=== PATIENT | female | born 1985 | race African-American/Black ===

== ENCOUNTER 2021-10-02 09:28 | Outpatient (CLI) | payer OTHER, SELFPAY ==
--- NOTE | ~2021-10-02 | US_ITS ---
EXAMINATION: US percutaneous drain w cath DATE: 10/02/2021 11:10 INDICATION: Recurrent right lower abdominal wall hematoma. TECHNIQUE: The procedure including the risks, benefits, and alternatives was discussed with the patie nt. Risks discussed included bleeding and infection. Oral and written consent were obtained. A time out was performed to verify the patient's name, date of , and procedure to be performed. The sk in overlying the right abdominal wall was prepped and draped in usual sterile fashion. Anesthetic wa s administered with 1% lidocaine subcutaneously. An 8.5 Fr catheter was inserted into the abdominal wall fluid collection by trocar technique. The metal stiffener and trocar needle were removed, and th e pigtail tip was locked. The catheter was stitched to the skin with suture. There were no immediate complications. FINDINGS: Ultrasound images demonstrate the catheter within the right abdominal wall fluid collection . 20 mL bloody fluid was aspirated and discarded. IMPRESSION: 1. Successful ultrasound-guided right abdominal wall abscess drainage. Reviewed, dictated and finalized at location A.
== END 2021-10-02 09:29 | disposition home or self-care (01) ==
PROVIDERS: Visit Provider Surgery Plastic and Reconstructive Surgery
DX: R18.8 Other ascites (principal)
CPT/HCPCS: 75989; C1729

== ENCOUNTER 2023-05-12 09:08 | Outpatient (CLI) | payer OTHER, SELFPAY ==
[2023-05-12 09:37] LABS: Basophils Percent Auto 0.6 % (0.2-1.2); Eosinophils Absolute Auto 0.2 K/mm3 (0-0.3); Eosinophils Percent Auto 5.4 % (0-4.4); Hematocrit 39.7 % (37.0-47.0); Immature Granulocyte Absolute 0.01 K/mm3 (0.00-0.031); Immature Granulocyte Percent A 0.3 % (0-0.5); Lymphocytes Absolute Auto 1.12 K/mm3 (0.9-3.2); Lymphocytes Percent Auto 35.3 % (18.3-44.2); Mean Corpuscular HGB Conc 32.7 g/dl (32-36); Mean Corpuscular Hemoglobin 29.3 pg (26-34); Mean Corpuscular Volume 89.6 fl (80-100); Mean Platelet Volume 10.5 fl (7.4-10.4); Monocytes Absolute Auto 0.5 K/mm3 (0.1-0.6); Monocytes Percent Auto 14.8 % (2.6-8.5); Neutrophils Absolute Auto 1.4 K/mm3 (1.3-6.7); Neutrophils Percent Auto 43.6 % (45.5-73.1); Platelet Count Result 182 k/mm3 (150-375); Red Blood Count 4.43 M/mm3 (4.2-5.4); Red Cell Distribution Width 13.2 % (11.5-14.5); White Blood Count 3.2 K/mm3 (4.5-10.0)
== END 2023-05-12 09:09 | disposition home or self-care (01) ==
LOC: ANHSURGERY 09:11
PROVIDERS: Visit Provider Obstetrics & Gynecology
DX: Z01.818 Encounter for other preprocedural examination (principal); R10.2 Pelvic and perineal pain
CPT/HCPCS: 36415; 85025; 86850; 86900; 86901

== ENCOUNTER 2023-05-13 00:53 | Day surgery (SDC) | payer OTHER, SELFPAY ==
[2023-05-06 12:24] VITALS: BMI 28.0
--- NOTE | 2023-05-06 12:29 | PC.NURSE ---
Report to the Outpatient Waiting Room, entrance under the green pavilion located off [facility], at time 11:30 on date 05/13/23. Planned Procedure Time: 1:30. Time changes happen often and if your time is changed the preop area will call you the afternoon before. - You and your visitor will be asked to self-screen and do not enter if you have any COVID symptoms. - A mask is optional within the hospital at this time. Patients may have clear liquids (water, carbonated beverages, clear teas, apple juice) until 3 hours prior to surgery with a maximum of 20 ounces. - No food from midnight until time of surgery Take the following medications with a SIP of water the morning of surgery: N/A DO NOT STOP ANY OF YOUR OTHER PRESCRIPTION MEDICATIONS PRIOR TO SURGERY ?EXCEPT THE FOLLOWING Medications to discontinue per physician: N/A Date to take last dose: N/A Please no make-up, nail croatian, hairspray, perfume, deodorant, or body powder the day of surgery. No jewelry (including any body piercings) or valuables the day of surgery, leave them at home. Please take a shower or bath the night before, or the morning of, surgery with an antibacterial soap. Wear comfortable, loose fitting clothing. - Jewelry must be removed prior to entering the operating room. Rings and piercings that are not removed may be cut off. - The hospital will not accept responsibility for valuables. - Please leave all valuables, including medications, at home the day of surgery. If you are going home after surgery, a licensed medical delivery driver must drive you home. - NO public transportation without another adult if you receive anesthesia. - We recommend that an adult stay with you for 24 hours following discharge. - We also recommend that you do not drive, make important decision, drink alcoholic beverages, or take any drugs that were not prescribed by your health care provider for at least 24 hours after your discharge time. Follow any additional instructions given to you from your surgeon. If you or anyone in your household have experienced Covid symptoms in the past week, please notify your surgeon or the nurse liaison at the phone number below for possible testing. Telephone instructions given to PT - ROSE ROSADO and asked if any additional questions and then verbalized understanding. Patient advised to call surgeon office or pre surgery nurse liaison [phone] if any additional questions.
--- NOTE | 2023-05-12 06:43 | PM.IMHP ---
H&P: HPI History of Present Illness Date/Time: 05/12/23 06:43 Chief Complaint: pelvic pain / dyspareunia/heavy bleeding Narrative: this is a pleasant 37-year-old female with bulgy uterus pelvic pain discomfort dyspareunia. She is status post tubal ligation. She has heavy bleeding and was offered multiple options including medication ablation versus hysterectomy. She opts for hysterectomy with bilateral salpingectomy. Risks and benefits reviewed including but not exclusive of , aspiration pneumonia, bleeding, transfusion, perforation injury to bowel, bladder, ureters, or other internal organs the need for open laparotomy. She received the [employer] handout entitled hysterectomy as well as de Ernestina handout. She had all questions answered. She asked to proceed [facility] Social History Social History Years smoked: 2 Smoking status: Former smoker Tobacco type: cigarettes Smoking end date: 06/08/19 Alcohol intake: never Substance use: never Substance use type: does not use Living arrangements: with family Additional living arrangements comments: CHILDREN Spiritual care concerns: No Meds Home Medications and Allergies Home Medications Medication Instructions Recorded Confirmed Type No Home Medications 07/17/21 05/06/23 History Allergies Allergy/AdvReac Type Severity Reaction Status Date / Time latex AdvReac Unknown Hives Verified 05/06/23 12:23 Exam Const: General: cooperative, healthy appearing and comfortable Nutritional Appearance: average body habitus Orientation/consciousness: oriented to person, oriented to place and oriented to time Resp: Effort & Inspection: normal respiratory effort Cardio: Rate: regular rate Rhythm: regular rhythm Heart sounds: S1 normal heart sound present and S2 normal heart sound present GI: Inspection: normal to inspection : External Female Exam: normal external appearance Speculum Exam - Vagina: normal appearance of the vagina Speculum Exam - Cervix: normal appearance of the cervix Bimanual exam- vagina & uterus: enlarged Bimanual Exam- Adnexa, other: normal adnexae Assessment and Plan Assessment and plan (1) Enlarged uterus: Code(s): N85.2 - Hypertrophy of uterus Status: Acute (2) Pelvic pain: Code(s): R10.2 - Pelvic and perineal pain Status: Acute (3) Dyspareunia: Status: Acute (4) Excessive bleeding: Code(s): R58 - Hemorrhage, not elsewhere classified Status: Acute Plan robotic total vaginal hysterectomy and bilateral salpingectomy
[2023-05-13] VITALS (9 sets, daily range): BP systolic 112–131; BP diastolic 72–93; PULSE 84–96; RESP 16–18; TEMP 36.2–37.1; O2SAT 98–100
--- NOTE | 2023-05-13 06:18 | WPDHPUPDATE1 ---
History and Physical Update Update Date/Time: 05/13/23 06:18 History and Physical has been reviewed, including an updated exam of the patient. There are NO changes in the patient's condition. Risks, benefits, and alternatives have been discussed and questions answered. Patient agrees to proceed with procedure.
[2023-05-13] MEDS: ACETAMINOPHEN 500 MG TABLET 1000 MG PO (11:42)
[2023-05-13] MEDS: LACTATED RINGERS 1,000 ML 30 ML IV CONT ×2 (12:16→14:33)
[2023-05-13] MEDS: SCOPOLAMINE 1.5 MG PATCH TRANSDERM (12:17)
[2023-05-13] MEDS: KETOROLAC 15 MG/ML VIAL (*BKC) IV PUSH (12:17)
--- NOTE | 2023-05-13 12:50 | WPDANESEPPF ---
Anes - Initial Pre Proc Eval Procedure: Operation Date: 05/13/23 13:30 Proposed Procedures p Robotic Total Vaginal Hysterectomy with Bilateral Salpingectomy - Tevin Springer MD Date/Time: 05/13/23 12:50 Surgeon: Tevin Springer MD Pre Op Diagnosis: Enlarg Uterus,Pelvic Pain,Dyspareunia,Heav Bleed Patient Data Age: 37 Gender: F Height: 1.6 m Weight: 71 kg Last Vital Signs Temp 36.5 C 05/13/23 12:20 Pulse 96 05/13/23 12:20 Resp 16 05/13/23 12:20 BP 131/92 H 05/13/23 12:20 Pulse Ox 100 05/13/23 12:20 O2 Del Method Room Air 05/13/23 12:20 Allergies Allergy/AdvReac Type Severity Reaction Status Date / Time latex AdvReac Unknown Hives Verified 05/13/23 11:37 Home Medications Medication Instructions Recorded Confirmed Type hydrocodone 5 mg-acetaminophen 325 1 tablet PO Q4H PRN pain #30 tabs 05/13/23 Rx mg tablet Patient hx anesthesia problems: none Family hx anesthesia problems: none Results Review: All pre-operative results and documents have been reviewed as part of the pre-operative evaluation. [facility] Past Medical History Medical History (Updated 05/13/23 @ 12:50 by Tevin Araujo MD) Overweight Rheumatoid arthritis Social History Social History Years smoked: 2 Smoking status: Former smoker Tobacco type: cigarettes Smoking end date: 06/08/19 Alcohol intake: never Substance use: never Substance use type: does not use Living arrangements: with family Additional living arrangements comments: CHILDREN Spiritual care concerns: No Anes - Eval Final PreProcedure Day of Procedure 05/13/23 12:50 Patient weight: overweight Heart: regular rate and rhythm Lungs: clear to auscultation Airway: Mallampati scale class II Neurological: alert and oriented Last oral intake: >/= 8 hours ASA classification: II Emergent: no Anesthetic plan: proceed Anesthesia type and monitoring: general ETT and standard monitoring Results Review: All pre-operative results and documents have been reviewed as part of the pre-operative evaluation. Informed Consent: The patient's anesthetic plan and its attendant risks and benefits were discussed with the patient/family/POA. Questions were solicited and answers provided to the satisfaction of the patient/family/POA.
[2023-05-13] MEDS: ceFAZolin 2 GM/D5W 50 ML 2 GM/50 ML BAG IVPB (13:22)
--- NOTE | 2023-05-13 14:18 | P.OP_ITS ---
Procedure Note - Detailed Date of Procedure 05/13/23 Pre-op Diagnosis Enlarg Uterus,Pelvic Pain,Dyspareunia,Heav Bleed Post-op Diagnosis Same Procedure Performed Robotic total vaginal hysterectomy Surgeon Tevin Springer MD Anesthesia General Indications 37-year-old female with enlarged uterus bleeding refractory medical therapy Findings absent tubes. Fibroid uterus. . Normal-appearing ovaries Description of Procedure patient was prepped draped in the normal sterile fashion placed in dorsal lithotomy position. Under excellent general trach anesthesia weighted speculum placed posterior. Anterior lip of cervix grasped with single-tooth tenaculum. Uterus sounded to 10cm. Serial dilatation fragment down followed passes the 10. JESSICA and the 2. 0.5 cold. Next a 16 Icelandic catheter placed in bladder draining clear urine. The weighted speculum a single-tooth removed. Gloves were changed. A supraumbilical incision made the Veress needle passed in the abdomen. Abdomen filled with CO2 gas [id number]. The 8mm trocar advanced in the abdomen. Downside visualized no injury seen patient placed in Trendelenburg and 18? and right left lateral quadrant incisions made there was a large seroma present in the lower left quadrant this was avoided. A right upper quadrant incision made the 8mm trocar advanced under direct visualization assuring no injury. The robot was docked. Attention was turned to the console. Anteriorly the left round ligament was grasped, burned, cut. A bladder flap was formed by sharply dissecting the peritoneum and refer collecting it caudally away from the cervix uterus the opposite round ligament was clamped, burned, cut. Next the utero-ovarian ligament on the left was skeletonized clamped burned and cut and brought to the level of previous cut round ligament. This conserve the left ovary. Conserving the right ovary the utero-ovarian ligament was clamped, burned, cut and brought to the level of previously cut round ligament. The cardinal broad ligaments on the left were then serially skeletonized clamping burning cutting and bringing this down the lateral edge of the uterus and cervix until the large tortuous blood vessels on the left were seen. These were individually clamped, burned, cut. In similar fashion on the right, the cardinal broad ligaments were skeletonized clamping burning cutting and hugging the cervix uterus until the uterine vessels could be seen on the right these were individually clamped, burned, cut. Excellent blanching the uterus was seen in a colpotomy incision made. The cervix and uterus removed through the vagina. The vagina closed with continuous running 0V lock from lateral edge to lateral edge back to the midline. Irrigation undertaken clear blood loss estimated 25cc. The robot was undocked. The gas removed from the abdomen. The trocars removed the incisions closed with 4 Monocryl and glue. The instruments in the vagina removed and the patient went recovery in satisfactory condition. All sponge, needle, instrument counts were correct. There were no immediate complications noted Estimated Blood Loss 25 Drains No Packing No Pathology Yes Complications No immediate complications Condition Stable Disposition PACU
--- NOTE | 2023-05-13 14:22 | PM.DS ---
DS: Admitting Diagnosis Discharge Date 05/14/2023 Admitting Diagnosis pelvic pain/ enlarged uterus/bleeding/ /dyspareunia DS: Discharge Diagnosis Discharge Diagnosis (1) Excessive bleeding: Code(s): R58 - Hemorrhage, not elsewhere classified Status: Acute (2) Dyspareunia: Status: Acute (3) Pelvic pain: Code(s): R10.2 - Pelvic and perineal pain Status: Acute (4) Enlarged uterus: Code(s): N85.2 - Hypertrophy of uterus Status: Acute DS: Summary Hospital Course Reason for hospitalization: patient was admitted on 05/13/2023 for robotic hysterectom Hospital Course: y. The procedure was performed on 05/13/2023. Procedure was uncomplicated. Her hospital course was unremarkable as well. She remained afebrile. She was up, eating regular diet, ambulating, voiding without difficulty, and generally without complaints. Time Spent with Patient Time attestation: Total time spent providing and/or coordinating discharge services: Exam Const: General: cooperative, healthy appearing and comfortable Nutritional Appearance: average body habitus Orientation/consciousness: oriented to person, oriented to place and oriented to time HENMT: Head: normal to inspection Resp: Effort & Inspection: normal respiratory effort Cardio: Rate: regular rate Rhythm: regular rhythm Heart sounds: S1 normal heart sound present and S2 normal heart sound present GI: Inspection: normal to inspection and incision ( Wounds are clean dry and intact) DS: Data Data Completed and Pending Pending studies at discharge: Pending at discharge 05/13/23 14:08 Surgical [PTH] Routine Discharge Plan Discharge Patient Disposition: Home, Self-Care Stand Alone Forms: General Discharge Instructions Follow-up/Referrals: Tevin Negrete MD [Physician] - Discharge Medications: New hydrocodone-acetaminophen 5-325 mg tablet 1 tablet PO Q4H PRN (Reason: pain) Qty: 30 0RF
[2023-05-13] MEDS: fentaNYL CITRATE INJ (*CRX) 100 MCG/2 ML VIAL 25 MCG IV PUSH ×8 (14:43→15:24)
[2023-05-13] MEDS: DEXTROSE 5%/LACTATED RINGERS 1,000 ML 125 ML IV CONT ×2 (16:17→23:20)
[2023-05-13] MEDS: ONDANSETRON INJ 4 MG/2 ML VIAL IV PUSH ×2 (16:22→21:09)
[2023-05-13] MEDS: KETOROLAC 30 MG/ML VIAL (*BKC) IV PUSH (19:11)
--- NOTE | 2023-05-13 19:12 | ADMGEN ---
1540-This patient, Nuria Camacho, was admitted to OB 2nd Floor Room 286-00. Patient/family oriented to hospital policies and general routines including ID bracelet, bed and alarms, visiting hours, pain management, procedures, bathroom and other care routines, personal items, smoking policy, room service/diet, and visiting hours. Information on how to activate the Rapid Response Team has been discussed. Patient/Family are encouraged to report perceived risks to care and to ask questions if they do not understand what they are told or what they should do.
[2023-05-13] MEDS: CALCIUM CARBONATE (TUMS) 500 MG (200 MG ELEMENTAL) (21:09)
[2023-05-14] MEDS: HYDROcodone/acetaminophen (*CRX) 5-325 MG TABLET 1 TAB PO (00:15)
[2023-05-14 04:20] VITALS: BP 115/68; PULSE 74; RESP 18; TEMP 36.9; O2SAT 100
[2023-05-14] MEDS: KETOROLAC 30 MG/ML VIAL (*BKC) IV PUSH (04:56)
[2023-05-14 05:21] LABS: Basophils Percent Auto 0.1 % (0.2-1.2); Hematocrit 32.9 % (37.0-47.0); Immature Granulocyte Absolute 0.02 K/mm3 (0.00-0.031); Immature Granulocyte Percent A 0.3 % (0-0.5); Lymphocytes Absolute Auto 0.61 K/mm3 (0.9-3.2); Lymphocytes Percent Auto 8.7 % (18.3-44.2); Mean Corpuscular HGB Conc 33.4 g/dl (32-36); Mean Corpuscular Hemoglobin 29.4 pg (26-34); Mean Platelet Volume 11.2 fl (7.4-10.4); Monocytes Absolute Auto 0.6 K/mm3 (0.1-0.6); Monocytes Percent Auto 8.3 % (2.6-8.5); Neutrophils Absolute Auto 5.8 K/mm3 (1.3-6.7); Neutrophils Percent Auto 82.6 % (45.5-73.1); Platelet Count Result 165 k/mm3 (150-375); Red Blood Count 3.74 M/mm3 (4.2-5.4); Red Cell Distribution Width 13.2 % (11.5-14.5)
--- NOTE | 2023-05-14 06:37 | PM.GYNPNOP ---
TRAVEL PHYSICAL THERAPIST - A/P Postoperative Procedures: Procedures Operation Date: 05/13/23 13:30 Actual Procedure Side Surgeon p Robotic Total Vaginal Hysterectomy Tevin Springer MD Postoperative day: 1 Postoperative status: doing well Postoperative plan: routine post-op care, see orders, ambulate, advance diet, voiding trials and discharge Time Spent With Patient Time: Total time spent is greater than 50% in coordination of care (as documented) at patient's floor/unit and/or counseling patient: Time with patient: less than 15 minutes TRAVEL PHYSICAL THERAPIST- PN:Subj Post-Op Subjective Date/time seen: 05/14/23 06:37 Subjective: patient reports feeling better, patient has no complaints, pain is well controlled and patient is tolerating oral intake Exam Const: General: cooperative, healthy appearing and comfortable Nutritional Appearance: average body habitus Orientation/consciousness: oriented to person, oriented to place and oriented to time HENMT: Head: normal to inspection Resp: Effort & Inspection: normal respiratory effort Cardio: Rate: regular rate Rhythm: regular rhythm Heart sounds: S1 normal heart sound present and S2 normal heart sound present GI: Inspection: normal to inspection and incision (cdi) TRAVEL PHYSICAL THERAPIST - PN: Obj Data Vital Signs Vital Signs: Vital Signs - 24 hr 05/13/23 12:20 05/13/23 14:33 05/13/23 15:00 Temperature 97.7 F 97.4 F L Pulse Rate 96 85 87 Respiratory Rate 16 18 18 Blood Pressure 131/92 H 126/93 H 131/89 Pulse Oximetry 100 100 100 Oxygen Delivery Room Air Simple Face Mask Room Air Oxygen Flow Rate 6 05/13/23 15:15 05/13/23 15:30 05/13/23 14:45 Temperature 97.1 F L Pulse Rate 88 85 86 Respiratory Rate 18 16 18 Blood Pressure 116/83 112/88 131/91 H Pulse Oximetry 100 100 100 Oxygen Delivery Room Air Room Air Simple Face Mask Oxygen Flow Rate 6 05/13/23 16:00 05/13/23 16:00 05/13/23 19:10 Temperature 97.6 F 98.8 F Pulse Rate 84 84 88 Respiratory Rate 16 16 18 Blood Pressure 121/78 124/89 Pulse Oximetry 98 98 Oxygen Delivery Room Air Oxygen Flow Rate 05/13/23 19:10 05/13/23 23:20 05/13/23 23:20 Temperature 98.7 F Pulse Rate 84 Respiratory Rate 18 Blood Pressure 121/72 Pulse Oximetry 99 Oxygen Delivery Room Air Room Air Oxygen Flow Rate 05/14/23 04:20 05/14/23 04:20 Temperature 98.5 F Pulse Rate 74 Respiratory Rate 18 Blood Pressure 115/68 Pulse Oximetry 100 Oxygen Delivery Room Air Oxygen Flow Rate Intake/Output Intake/Output: Intake & Output 05/11/23 05/12/23 05/13/23 05/14/23 23:59 23:59 23:59 23:59 Intake Total 2450 400 Output Total 550 1000 Balance 1900 -600 Meds/Results Medications: Active Medications Generic Name Dose Route Start Last Admin Trade Name Freq PRN Reason Stop Dose Admin Hydrocodone Bitart/Acetaminophen 1 tab 05/13/23 15:34 05/14/23 00:15 Hydrocodone/Acetaminophen (*Crx) 5-325 Mg Tablet PO 1 tab Q3H PRN Administration Pain Rated 5 or Less Hydrocodone Bitart/Acetaminophen 1 tab 05/13/23 15:34 Hydrocodone/Acetaminophen (*Crx) 10-325 Mg Tablet PO Q3H PRN Pain Rated 6 or Greater Docusate Sodium 100 mg 05/13/23 17:00 05/13/23 17:00 Docusate Sodium 100 Mg Capsule PO Not Given BID GNHIA Enoxaparin Sodium 40 mg 05/14/23 09:00 Enoxaparin 40 Mg/0.4 Ml Syringe SUB-Q DAILY NGHIA Dextrose/Lactated Ringer's 1,000 mls @ 125 mls/hr 05/13/23 15:34 05/13/23 23:20 Dextrose 5%/Lactated Ringers IV CONT 125 mls/hr .Q8H NGHIA Administration Ibuprofen 600 mg 05/13/23 15:34 Ibuprofen 600 Mg Tablet PO Q6H PRN Cramping Ketorolac Tromethamine 30 mg 05/13/23 15:34 05/14/23 04:56 Ketorolac 30 Mg/Ml Vial (*Bkc) IV PUSH 05/18/23 15:33 30 mg Q6H PRN Administration Pain Rated 4-6 Naloxone HCl 0.1 mg 05/13/23 15:34 Naloxone Hcl 0.4 Mg/Ml Vial IV PUSH Q2M PRN Respiratory rate less than 10 Ondansetron HCl 4 mg 1
[2023-05-14 08:40] VITALS: BP 125/87; PULSE 80; RESP 16; TEMP 37.2; O2SAT 99
[2023-05-14] MEDS: ENOXAPARIN 40 MG/0.4 ML SYRINGE SUB-Q (08:55)
[2023-05-14] MEDS: SIMETHICONE 80 MG TAB.CHEW PO (08:55)
[2023-05-14] MEDS: DOCUSATE SODIUM 100 MG CAPSULE PO (08:55)
[2023-05-14] MEDS: ACETAMINOPHEN 325 MG TABLET 650 MG PO (08:57)
[2023-05-14] MEDS: IBUPROFEN 600 MG TABLET PO (11:19)
== END 2023-05-14 11:40 | disposition home or self-care (01) ==
LOC: ANHSURGERY 11:34 → ANHOB2 15:57
PROVIDERS: Visit Provider Obstetrics & Gynecology
PROC: (CPT 58550; principal; 2023-05-13 13:30)
DX: N88.8 Other specified noninflammatory disorders of cervix uteri (principal); N80.03 Adenomyosis of the uterus; R10.2 Pelvic and perineal pain; N94.10 Unspecified dyspareunia; N93.9 Abnormal uterine and vaginal bleeding, unspecified; Z87.891 Personal history of nicotine dependence
CPT/HCPCS: 58550; S2900; 36415; 85025; 86850; 86900; 86901; 88307; 99199; A9270; J0690; J1100; J1650; J1885; J2250; J2405; J2704; J3010; J7030; J7120; J7121

== ENCOUNTER 2023-12-31 09:02 | Emergency (ER) | payer OTHER, SELFPAY ==
[2023-12-31 09:18] VITALS: BP 142/98; PULSE 89; RESP 16; TEMP 36.5; O2SAT 100
--- NOTE | 2023-12-31 09:24 | ED.FEMALEGU ---
HPI - Female Genitourinary General Chief complaint: Urogenital-Female Stated complaint: Vaginal Problems Time Seen by Provider: 12/31/23 09:24 Source: patient, RN notes reviewed and old records reviewed Mode of arrival: ambulatory Limitations: no limitations History of Present Illness HPI Narrative: 38-year-old female presents to the [facility] with a 2 day history of vaginal irritation, discharge, abnormal odor. Patient denies any fevers, abdominal pain. No CVA tenderness. Denies any frequency urgency or burning with urination. Patient reports that she used a boric acid suppository yesterday Patient wanting to be tested for an STD. History of a hysterectomy Onset (ago): day(s) (2) Related Data Allergies Allergy/AdvReac Type Severity Reaction Status Date / Time latex AdvReac Unknown Hives Verified 12/31/23 09:07 Review of Systems Review of Systems: All systems reviewed & are unremarkable except as noted in HPI and below Constitutional: Constitutional: Reports no additional constitutional complaints Eyes: Eyes: Reports no additional eye complaints ENT: Reports system reviewed and no additional complaints, except as documented Cardiovascular: Cardiovascular: Reports no additional cardiovascular complaints, Denies chest pain and Denies dyspnea Respiratory: Respiratory: Reports no additional respiratory complaints, Denies chest congestion, Denies cough and Denies dyspnea Gastrointestinal: Gastrointestinal: Reports no additional gastrointestinal complaints, Denies abdominal pain, Denies nausea and Denies vomiting Genitourinary: Genitourinary: Reports as per HPI Musculoskeletal: Musculoskeletal: Reports no additional musculoskeletal complaints Integumentary/Breasts: Skin/Breast: Reports system reviewed and no additional complaints, except as docu Neurologic: Reports system reviewed and no additional complaints, except as documented Psychiatric: Psychiatric: Reports no additional psychiatric complaints Allergic/Immunologic: Allergic/Immunologic: Reports no additional allergic/immunologic complaints [facility] Past Medical History Medical History Overweight Rheumatoid arthritis Social History Social History Years smoked: 2 Smoking status: Former smoker Tobacco type: cigarettes Smoking end date: 06/08/19 Alcohol intake: never Substance use: never Substance use type: does not use Living arrangements: with family Additional living arrangements comments: CHILDREN Spiritual care concerns: No Comments At the time of my signature, I reviewed and agree with the nursing past medical, surgical, social, and family history. There is no relevant family history pertinent to the patient complaint. Exam Const: General: cooperative, healthy appearing, comfortable, no acute distress, well developed, alert and well nourished Nutritional Appearance: well nourished Orientation/consciousness: patient oriented x3 Limitations: no limitations HENMT: Head: normal to inspection Ears: hearing grossly normal bilaterally and external ears normal Face/Nose/Sinus: Normal external nose present, Normal nares present, Normal nasal mucous membranes and turbinates present, normal facial exam and face symmetric Face and sinus: normal facial exam and face symmetric Eyes: General: appearance normal, both eyes and all related structures Alignment and Position: alignment normal Periorbital: periorbital findings normal Neck: Neck: normal visual inspection, full ROM, no lymphadenopathy and no meningeal signs Chest: Chest palpation & inspection: normal inspection of the chest Resp: Effort & Inspection: normal respiratory effort and able to speak in complete sentences Cardio: Rate: regular rate : General: Yes no CVA tenderness External Female Exam: normal external appearance Speculum Exam - Vagina: abnormal vaginal dis
[2023-12-31 20:15] LABS: Trichomonas Vag PCR NOT DETECTED (NOT DETECTE)
[2023-12-31 20:39] LABS: Chlamydia trachomatis NOT DETECTED (NOT DETECTE); Neisseria gonorrhoeae PCR NOT DETECTED (NOT DETECTE)
[2024-01-01 17:49] LABS: Bacterial Vaginosis POSITIVE (NEGATIVE)
== END 2023-12-31 09:45 | disposition home or self-care (01) ==
PROVIDERS: Emergency Provider Nurse Practitioner; PCP Obstetrics & Gynecology
DX: R10.2 Pelvic and perineal pain (principal); Z20.2 Contact with and (suspected) exposure to infections with a predominantly sexual mode of transmission; Z87.891 Personal history of nicotine dependence; M06.9 Rheumatoid arthritis, unspecified
CPT/HCPCS: 81513; 87070; 87491; 87591; 87661; 99213; G0463

== ENCOUNTER 2024-05-17 13:27 | Emergency (ER) | payer OTHER, SELFPAY ==
--- NOTE | ~2024-05-17 | XR_ITS ---
EXAMINATION: XR chest 2V Exam Date/Time: 05/17/2024 13:40 MARBLE SETTER HISTORY: Chest congestion Comparison: None. RESULT: Lines, tubes, and devices: None. Lungs and pleura: Clear. Cardiomediastinal silhouette: Normal. Other: No acute osseous or upper abdominal finding. IMPRESSION: No acute cardiopulmonary process. Reviewed, dictated and finalized at location K. LE SETTER
[2024-05-17 13:37] VITALS: BP 139/89; PULSE 121; RESP 18; TEMP 38.4; O2SAT 100
--- NOTE | 2024-05-17 13:39 | ED.URI ---
HPI - URI/Sore Throat General Chief Complaint: Upper Respiratory Infection Stated Complaint: chest pain,SOB Time Seen by Provider: 05/17/24 13:40 Source: patient, RN notes reviewed and old records reviewed Mode of arrival: ambulatory Limitations: no limitations History of Present Illness HPI Narrative: Patient presents directly from work running a fever, complaining of productive cough and pain with cough. She has not taken anything for her symptoms prior to arrival. She reports sensation of chest heaviness, particularly with cough. She is tearful because she is feeling so unwell. She reports that she feels as though she has COVID again. Reports all symptoms began suddenly last night, have worsened since coming to work this. She has not taken anything for her symptoms Related Data Allergies Allergy/AdvReac Type Severity Reaction Status Date / Time Penicillins Allergy Hives Verified 05/17/24 13:55 latex AdvReac Unknown Hives Verified 05/17/24 13:55 Review of Systems Review of Systems: All systems reviewed & are unremarkable except as noted in HPI and below Constitutional: Constitutional: Reports no additional constitutional complaints, Reports body ache(s), Reports chills, Reports fever(s), Reports headache(s) and Reports lethargy ENT: Reports system reviewed and no additional complaints, except as documented Cardiovascular: Cardiovascular: Reports no additional cardiovascular complaints Respiratory: Respiratory: Reports no additional respiratory complaints, Reports chest congestion, Reports cough, Reports pain on inspiration and Reports pain with cough Gastrointestinal: Gastrointestinal: Reports no additional gastrointestinal complaints PMFSH Past Medical History Medical History Overweight Rheumatoid arthritis Social History Social History Years smoked: 2 Smoking status: Former smoker Tobacco type: cigarettes Smoking end date: 06/08/19 Alcohol intake: never Substance use: never Substance use type: does not use Living arrangements: with family Additional living arrangements comments: CHILDREN Spiritual care concerns: No Exam Const: General: cooperative, no acute distress, alert, awake, anxious and uncomfortable Orientation/consciousness: oriented to person, oriented to place and oriented to time HENMT: Head: normal to inspection Mouth: Yes moist mucous membranes Throat: posterior oropharynx normal Resp: Effort & Inspection: normal respiratory effort and able to speak in complete sentences Auscultation: clear to auscultation bilaterally, no crackles, no rales, no rhonchi and no wheezes Cardio: Palpation: normal PMI Rate: regular rate Rhythm: regular rhythm Heart sounds: S1 normal heart sound present and S2 normal heart sound present Neuro: General: oriented to person, oriented to place and oriented to time Cranial nerves: Yes CN's II-XII intact bilaterally Psych: Appearance: grossly normal Thought process: Normal thought process present Insight: Good insight present (Psych) Judgement: Good judgement present (Psych) Course Course Level of Care: Express Care Visit Vital Signs Vital signs: Vital Signs Temperature 101.2 F H 05/17/24 13:37 Pulse Rate 121 H 05/17/24 13:37 Respiratory Rate 18 05/17/24 13:37 Blood Pressure 139/89 05/17/24 13:37 Pulse Oximetry 100 05/17/24 13:37 Temperature 101.2 F H 05/17/24 13:37 Pulse Rate 121 H 05/17/24 13:37 Respiratory Rate 18 05/17/24 13:37 Blood Pressure 139/89 05/17/24 13:37 Pulse Oximetry 100 05/17/24 13:37 MDM - URI/Sore Throat MDM Narrative Medical decision making narrative: Negative flu, negative COVID, negative strep. Culture pending. Discussed with patient that symptoms have been present for less than 24 hours, therefore may not show up with the swabs that were collected today. She verbalizes understanding of same. Her chest x-ray is unremarkable. Pulse and temperature reduced at time of discharge after Tylenol given. Patient advised to continue supportive care measures at home. Follow-up with primary care provider. Emergency department for new or worse symptoms. Discharge instructions reviewed with patient, as well as provided in writing per nursing staff. The instructions also include specific and strict return/GO TO THE ER as well as f/u information. All questions have been answered, and the patient deny any further questions with discharge and discharge plan. Some parts of this dictation were generated by voice recognition software and may contain typographical and/or grammatical inaccuracies. Differential Diagnosis Differential diagnosis: Likely upper respiratory infection, viral infection, bronchitis, influenza and pharyngitis Medical Records Attestation: I reviewed the patient's medical records. Lab Data Attestation: I reviewed the patient's lab results. Imaging Data Attestation: I personally reviewed and interpreted this imaging study as follows: My impression: No acute process Radiologist's impression: [facility] [address] [place] [address] XRay Report Signed Patient: Nuria Camacho : 1985 MR#: [id number] Age: 38 Acct:[id number] Loc: [facility] ADM Date: 05/17/24Attending Dr: Ordering Physician: Huong Jose FNP Date of Service: 05/17/24 Procedure(s): XR chest 2V Accession Number(s): [id number] cc: Huong Jose FNP; Hilary, Fredrick AMOR ([place]heng[place])~ EXAMINATION: XR chest 2V Exam Date/Time: 05/17/2024 13:40 TITLE I INSTRUCTIONAL ASSISTANT HISTORY: Chest congestion Comparison: None. RESULT: Lines, tubes, and devices: None. Lungs and pleura: Clear. Cardiomediastinal silhouette: Normal. Other: No acute osseous or upper abdominal finding. IMPRESSION: No acute cardiopulmonary process. Reviewed, dictated and finalized at location K. E I INSTRUCTIONAL ASSISTANT Dictated By: Elliot Shah MD 05/17/24 1400 Signed By: <Electronically signed by Elliot Shah MD in OV> 05/17/24 1402 Discharge Plan Discharge Clinical Impression: Viral infection Patient Disposition: Home, Self-Care Condition: Stable Instructions: Antibiotic Form, Cold Symptoms (ED) Additional Instructions: Use [id number] medications such as Tylenol or ibuprofen to treat her symptoms. Follow package instructions. Plenty of rest and fluids. Follow with primary care provider. Emergency department for new or worse symptoms Patient Language: Bangladeshi Prescriptions: No Action fluconazole 150 mg tablet 150 mg PO ONCE Qty: 2 0RF Rx Instructions: as a single dose may repeat in 72 hours metronidazole 500 mg tablet 500 mg PO Q12H Qty: 14 0RF Follow-up/Referrals: Marv,MD Alcala ([place]) [Primary Care Provider] - 1 Week Stand Alone Forms: Work/School Release IP Time of Disposition: 14:51
[2024-05-17 13:52] VITALS: TEMP 38.4
[2024-05-17] MEDS: ACETAMINOPHEN 500 MG TABLET 1000 MG PO (13:52)
[2024-05-17 14:51] VITALS: PULSE 106; TEMP 37.3
[2024-05-17 15:09] LABS: EDINFLUASCREEN Negative (Negative); EDINFLUBSCREEN Negative (Negative); EDSTREPNEGPOS1 Negative (Negative)
[2024-05-18 07:32] LABS: EDCOVIDSCREEN Negative (Negative)
== END 2024-05-17 15:02 | disposition home or self-care (01) ==
PROVIDERS: Emergency Provider Nurse Practitioner Family; PCP Internal Medicine
DX: B34.9 Viral infection, unspecified (principal); Z20.822 Contact with and (suspected) exposure to COVID-19; Z87.891 Personal history of nicotine dependence; M06.9 Rheumatoid arthritis, unspecified
CPT/HCPCS: 71046; 87081; 87426; 87804; 87880; 99213; A9270; G0463

== ENCOUNTER 2024-11-17 12:29 | Emergency (ER) | payer OTHER, SELFPAY ==
--- NOTE | 2024-11-17 12:33 | ED.FEMALEGU ---
HPI - Female Genitourinary General Chief complaint: Urogenital-Female Stated complaint: Vaginal Problems Time Seen by Provider: 11/17/24 12:38 Source: patient, RN notes reviewed and old records reviewed Mode of arrival: ambulatory Limitations: no limitations History of Present Illness HPI Narrative: 39-year-old female presents to the [facility] with concerns for BV. Patient reports 2-3 day history of white thick discharge, itchy. States that she used the wrong soap recently. Denies any concerns for STI. Denies any other symptoms. Related Data Allergies Allergy/AdvReac Type Severity Reaction Status Date / Time Penicillins Allergy Hives Verified 11/17/24 12:35 latex AdvReac Unknown Hives Verified 11/17/24 12:35 Review of Systems Review of Systems: All systems reviewed & are unremarkable except as noted in HPI and below Constitutional: Constitutional: Reports no additional constitutional complaints ENT: Reports system reviewed and no additional complaints, except as documented Cardiovascular: Cardiovascular: Reports no additional cardiovascular complaints, Denies chest pain and Denies dyspnea Respiratory: Respiratory: Reports no additional respiratory complaints, Denies chest congestion, Denies cough and Denies dyspnea Genitourinary: Genitourinary: Reports as per HPI Musculoskeletal: Musculoskeletal: Reports no additional musculoskeletal complaints Integumentary/Breasts: Skin/Breast: Reports system reviewed and no additional complaints, except as docu PMFSH Past Medical History Medical History Overweight Rheumatoid arthritis Surgical History Surgical History (Updated 11/17/24 @ 16:58 by Ju Ferris APRN) H/O: hysterectomy Social History Social History Years smoked: 2 Smoking status: Former smoker Tobacco type: cigarettes Smoking end date: 06/08/19 Alcohol intake: never Substance use: never Substance use type: does not use Living arrangements: with family Additional living arrangements comments: CHILDREN Spiritual care concerns: No Comments At the time of my signature, I reviewed and agree with the nursing past medical, surgical, social, and family history. There is no relevant family history pertinent to the patient complaint. Exam Const: General: cooperative, healthy appearing, comfortable, no acute distress, well developed, alert and well nourished Nutritional Appearance: well nourished Orientation/consciousness: patient oriented x3 Limitations: no limitations HENMT: Head: normal to inspection Eyes: General: appearance normal, both eyes and all related structures Alignment and Position: alignment normal Neck: Neck: normal visual inspection, full ROM, no lymphadenopathy and no meningeal signs Chest: Chest palpation & inspection: normal inspection of the chest Resp: Effort & Inspection: normal respiratory effort and able to speak in complete sentences Auscultation: clear to auscultation bilaterally, no crackles, no rales, no rhonchi and no wheezes Cardio: Rate: regular rate GI: GI Palp: No abdominal tenderness : Other: Deferred due to patient's history of similar Skin: General skin exam: normal color and no rashes or lesions noted Neuro: General: patient oriented x3, gait normal, moves all extremities and no meningeal signs Cognition (Neuro): normal cognition Speech: normal speech Gait exam (Neuro): Normal gait present Extrem: General: normal to inspection, full ROM, capillary refill normal and normal gait Psych: Appearance: grossly normal and well kempt Mental Status: mental status grossly normal Speech and movement: Normal speech and movement present and Clear speech present Affect: normal affect Attitude: cooperative Course Course Level of Care: Express Care Visit Vital Signs Vital signs: Vital Signs Temperature 96.7 F L 11/17/24 12:38 Pulse Rate 94 11/17/24 12:38 Respiratory Rate 18 11/17/24 12:38 Blood Pressure 137/99 H 11/17/24 12:38 Pulse Oximetry 100 11/17/24 12:38 Oxygen Delivery Room Air 11/17/24 12:38 Temperature 96.7 F L 11/17/24 12:38 Pulse Rate 94 11/17/24 12:38 Respiratory Rate 18 11/17/24 12:38 Blood Pressure 137/99 H 11/17/24 12:38 Pulse Oximetry 100 11/17/24 12:38 Oxygen Delivery Room Air 11/17/24 12:38 Reviewed MDM - Female Genitourinary MDM Narrative Medical decision making narrative: Patient sitting in exam. Patient is nontoxic, vitals stable. Patient presents with 2-3 day history of vaginal irritation, itching, discharge. Patient reports change in soap. Patient has a history of BV, states that it feels similar. Will treat with Flagyl and Diflucan. Patient appropriate for outpatient treatment and follow-up Discharge instructions reviewed with patient, as well as provided in writing per nursing staff. The instructions also include specific and strict return/GO TO THE ER as well as f/u information. All questions have been answered, and the patient deny any further questions with discharge and discharge plan. Some parts of this dictation were generated by voice recognition software and may contain typographical and/or grammatical inaccuracies. Differential Diagnosis Differential diagnosis: Likely urinary tract infection, bacterial vaginosis and trichomoniasis Critical Care Time Critical Care Time Critical Care Time: No Discharge Plan Discharge Clinical Impression: Bacterial vaginosis Patient Disposition: Home Condition: Stable Instructions: Bacterial Vaginosis (ED) Patient Language: Upper Sorbian Prescriptions: New metronidazole 500 mg tablet 500 mg PO Q12H Qty: 14 0RF fluconazole 150 mg tablet 150 mg PO ONCE Qty: 2 0RF Rx Instructions: Take 1 tablet today, repeat in 72 hours if needed Follow-up/Referrals: Marv,MD Alcala ([place]) [Primary Care Provider] - 2 Weeks Time of Disposition: 12:43
[2024-11-17 12:38] VITALS: BP 137/99; PULSE 94; RESP 18; TEMP 35.9; O2SAT 100
== END 2024-11-17 12:45 | disposition home or self-care (01) ==
PROVIDERS: Emergency Provider Nurse Practitioner; PCP Internal Medicine
DX: N76.0 Acute vaginitis (principal); M06.9 Rheumatoid arthritis, unspecified; Z87.891 Personal history of nicotine dependence
CPT/HCPCS: 99213; G0463